=== PATIENT | male | born 1990 | race Caucasian/White ===

== ENCOUNTER 2018-02-05 19:36 | Inpatient (IN) | payer OTHER ==
[~2018-02-05] VITALS: Ht 188 cm; Wt 68.0 kg
--- NOTE | 2018-02-05 20:00 | NUR ---
PRE ADMISSION NOTE Pt is a 27 y/o male seen at intake, A&O x4 and is ambulatory with steady gait. Pt is anxious, restlessness, tremulous with sweats. Pt is withdrawing from benzos and intoxicated from heroin and meth via oral inhalation. Pt reports he last used Xanax "3-4 days ago." Pt denies significant PMH, but reports taking Seroquel 100 mg nightly. Vital signs: 134/86, HR 87, RR 16, T 98.5, 02 97%, Pain 5/10 (body aches). Will continue care of patient upon arrival on unit.
--- NOTE | 2018-02-05 20:30 | NUR ---
Admission The patient is a 27 year old male who presents to [facility] for medically supervised withdrawal from Heroin, Xanax, and Methamphetamines. He was escorted on to the unit by a male ADVERTISING SALES ASSISTANT at 2018. Patient is noted to be ambulatory with steady gait. Skin check rendered and skin is noted with multiple scattered scabs due to picking while intoxicated. The patient appears anxious, flat, and depressed affect. He is noted to be disheveled and unkempt with strong body odor and dirty finger nails. He is alert and oriented x4, speech is clear, and he is noted to be cooperative with admission process. Patient reports his substance use as: 1. Heroin: patient first started using at the age of [age] years old. He is currently using 1GM daily via inhalation. His last use was 02/05/18 1530 using 0.5GM. 2. Methamphetamines: patient first started using at the age of [age] years old. He is currently using 1GM daily via inhalation. His last use was 02/05/18 1530 using 0.2GM 3. Xanax: patient first started using at the age of [age] years old. He is currently using 4mg daily by mouth or via insufflation. His last use was 02/01/18 using 4mg. Patient states "I havn't used because I wasn't able to find any within the last few days. I've been trying to manage by just using heroin and meth." 4. ETOH: patient reports of first drinking at the age of 12. He states "only use when Im with friends that drink" Patient states "I feel like I'm detoxing off the Benzos more than I am off of the Heroin or meth." Patient is reporting increased anxiety, restlessness, increased sweats, tremulous, and body aches. Patient is noted to frequently shifting in position, with flushed face, tremulous. Patient denies any seizure history. He is noted with one episode of withdrawal induced delirium at the age of 16, due to consuming an unknown amount of Benzos and opiates. Patient states "I dont know what exactly happened but my parents told me I was doing some pretty crazy stuff." He reports of receiving treatment at [facility] where he stayed for 3 weeks. Patient denies any withdrawal induced cardiac complications or overdoses. He reports of several blackouts. When asked patient to clarify patient states "Yea I have blackouts often from the Benzos. I dont remember what happens from one specific point to another. I think that I fall asleep but my friends will tell me that I was doing things or I check my phone and dont recognize text messages or conversations." Patient states the most recent blackout was noted 02/01/18 when he consumed Alcohol, methamphetamines, xanax, and heroin. Patient denies any suicidal ideations or homicidal ideations. Patient denies any history of Involuntary Psych Hospitalization. Patient reports of a past medical history of anxiety since the age of 14 where he was prescribed Xanax. Patient also reports diagnosis of insomnia where he is currently receiving Seroquel 100mg QHS for Sleep. Patient denies a PCP or psychiatrist. Patient verbalizes multiple treatment admissions with the last one noted to be in November 2017 where patient was admitted to [facility] detox and treatment. patient reports of only staying for 5 days and then leaving [facility]. Patient reports of struggling with multiple attempts with sobriety but was able to maintain 2 year sober between the years of 2010 and 2012. Patient was noted to relapse during the first of November 2017 immediately after he left [facility] detox and treatment. 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 That then played into the meetings I was attending. I never found new meetings that worked. I found myself just isolative and then I started using." Patient is motivated in maintaining sober lifestyle and states "I miss being sober. I miss my friends and family. I miss the rebeca of working." He reports his triggers for relapse are "its a habit now. I dont want to feel sick so I use. But I know I dont want to continue like this. I know its leading me down the wrong way." When describing barries for staying sober patient states "its all me. Its my thoughts. The cravings take over and I think I can beat it but I cant." Patient states " I this time I have lost so much. I lost my job which I loved. My apartment." Patient reports of having a strong support system consisting of his immediate family and sober friends. Vital Signs rendered and noted as 132/59, 81, 18, 98.0, 100%, 0/10. Breathing is even and non labored. Lung sounds clear. Bowel sounds active in all quadrants. Patient follows a regular diet. No known allergies. Full code. Height is 6'2 and weight is 150lbs. Educated patient about plan of care including detox, group therapy, individual therapy, discharge planning and he was able to verbalize understanding. Admission CIWA noted to be 19 and COWS noted to be 12. Patient is able to verbalize "I dont feel like I need anything for the heroin withdrawal. I just feel like I'm really detoxing from the benzos." All information was relayed to MD with new orders for PRN medications for increased signs and symptoms of withdrawal. Labs ordered and rendered. All needs attended to promptly. Will continue plan of care as ordered.
[2018-02-05] MEDS ORDERED: QUET100T PO (21:16)
[2018-02-05] MEDS ORDERED: LOPERAMIDE HCL 2 MG CAPSULE PO PRN ×2 (21:30)
[2018-02-05] MEDS ORDERED: MAG HYDROX/AL HYDROX/SIMETH 30 ML LIQUID UDC PO PRN (21:30)
[2018-02-05] MEDS ORDERED: LORAZEPAM 1 MG TABLET PO PRN (21:30)
[2018-02-05] MEDS ORDERED: ONDANSETRON 4 MG/2 ML VIAL IM PRN (21:30)
[2018-02-05] MEDS ORDERED: DICYCLOMINE HCL 20 MG TABLET PO PRN (21:30)
[2018-02-05] MEDS ORDERED: ONDANSETRON ODT 4 MG TAB.RAPDIS SL PRN (21:30)
[2018-02-05] MEDS ORDERED: BUPRENORPHINE HCL 2 MG TAB.SUBL SL PRN (21:30)
[2018-02-05] MEDS ORDERED: [UNRECOGNIZED DRUG - REMARK] PO PRN (21:30)
[2018-02-05] MEDS ORDERED: diphenhydrAMINE 50 MG CAPSULE PO PRN (21:30)
[2018-02-05] MEDS ORDERED: MAGNESIUM HYDROXIDE 30 ML LIQUID UDC PO PRN (21:30)
[2018-02-05] MEDS ORDERED: QUETIAPINE FUMARATE 100 MG TABLET PO ONE (22:00)
--- NOTE | 2018-02-05 22:00 | NUR ---
PRN Medication Administration patient is noted with increased anxiety, restlessness, agitation, tremulous, flushed face, increased sweats and chills. CIWA noted to be 19 and COWS 12. PRN Ativan 2 mg administered. Patient also received one time dose of Seroquel 100mg for sleep. All needs attended to promptly. Will continue to monitor.
[2018-02-05 22:12] LABS: *AMPHETAMINE, URINE POSITIVE (NEGATIVE); *BARBITURATE, URINE NEGATIVE (NEGATIVE); *CANNABINOID, URINE NEGATIVE (NEGATIVE); *COCCAINE, URINE NEGATIVE (NEGATIVE); *OPIATE, URINE POSITIVE (NEGATIVE); *PHENCYCLIDINE SCREEN,URINE NEGATIVE (NEGATIVE)
--- NOTE | 2018-02-05 23:00 | NUR ---
PRN Medication Reassessment Patient is noted in bed with eyes closed. Breathing even and non labored. No signs of restlessness or discomfort noted. PRN Ativan 2mg and Seroquel 100mg noted to be effective. Will continue to monitor.
[2018-02-05 23:18] LABS: BASOPHILS # (AUTO) 0.1 K/uL (0.0-8.0); BASOPHILS % (AUTO) 1.2 % (0.0-2.0); EOSINOPHILS # (AUTO) 0.4 K/uL (0.0-0.7); EOSINOPHILS % (AUTO) 3.7 % (0.0-7.0); HEMATOCRIT 40.8 % (36.7-47.1); LYMPHOCYTES # (AUTO) 2.9 K/uL (20.0-40.0); LYMPHOCYTES % (AUTO) 29.5 % (20.5-51.5); MEAN CORPUSCULAR HEMOGLOBIN 30.1 uug (23.8-33.4); MEAN CORPUSCULAR HGB CONC 34 g/dL (32.5-36.3); MEAN CORPUSCULAR VOLUME 87.7 fL (73.0-96.2); MONOCYTES % (AUTO) 9.9 % (0.0-11.0); NEUTROPHILS # (AUTO) 5.5 K/uL (1.8-8.9); NEUTROPHILS % (AUTO) 55.7 % (38.5-71.5); PLATELET COUNT (AUTO) 294 K/uL (152-348); RED BLOOD CELL COUNT(AUTO) 4.65 MIL/uL (4.06-5.63); WHITE BLOOD COUNT (AUTO) 9.9 K/uL (3.6-10.2)
[2018-02-05 23:28] LABS: ETHANOL < 3 MG/DL (0-0)
[2018-02-05 23:29] LABS: ALANINE AMINOTRANSFERASE 23 U/L (16-63); ALKALINE PHOSPHATASE 90 U/L (50-136); ASPARTATE AMINOTRANSFERASE 25 U/L (15-37); BILIRUBIN,TOTAL 0.6 mg/dL (0.2-1.0); CARBON DIOXIDE 28 mmol/L (21-32); CHLORIDE 102 mmol/L (98-107); GLUCOSE 91 mg/dL (74-106); MAGNESIUM 2.2 mg/dL (1.8-2.4); POTASSIUM 3.8 mmol/L (3.5-5.1); TOTAL PROTEIN, SERUM 7.3 g/dL (6.4-8.2); UREA NITROGEN, BLOOD 14 mg/dL (7-18)
[2018-02-06 00:30] VITALS: BP 116/65
[2018-02-06 04:30] VITALS: BP 111/72
--- NOTE | 2018-02-06 07:05 | NUR ---
End of Shift Patient is noted in bed with eyes closed. Breathing even and non labored. Patient is currently receiving PRN medications for increased signs and symptoms of withdrawal. Patient received PRN Ativan 2mg for increased CIWA of 19. he also received one time dose of Seroquel 100mg for sleep. He was noted to sleep a total of 8 hours. Last noted COWS 12 and CIWA 19. All needs attended to promptly. Will endorse to continue plan of care as ordered.
--- NOTE | 2018-02-06 07:51 | NUR ---
Start of shift note; Received report from night nurse. Patient is a 27 year old male admitted on 02/05/18 for Opiate/Benzodiazepine withdrawal. Patient's last CIWA score is 19 and COWS of 12 per endorsement. Patient received PRN Ativan medication last night, noted to be effective. Medication order to be clarified with MD. Patient presented with anxiety, complaining of intermittent sweats, vivid dreams, generalized discomfort, stomach cramps, restless legs, tremors, avoidant to eye contact. Educated patient regarding the importance of compliance to treatment and medication regime. Encouraged patient to participate in group activities and therapy. All safety measures secured. Will continue to monitor patient.
[2018-02-06 08:00] VITALS: BP 107/63
--- NOTE | 2018-02-06 08:00 | NUR ---
COWS and CIWA Assessment; Patient current COWS is 11 and CIWA of 16 manifested by anxiety, restless legs, tremors, stomach cramps, nasal stuffiness, difficulty concentrating, insomnia, muscle aches, yawning and agitation. Patient to start 5 day Valium taper and currently on PRN Subutex to help reduce withdrawal symptoms. Will continue to monitor patient for effectiveness of medication.
[2018-02-06] MEDS ORDERED: DIAZEPAM 5 MG TABLET PO PRN (08:30)
[2018-02-06] MEDS ORDERED: DIAZEPAM 10 MG TABLET PO PRN ×2 (08:30)
[2018-02-06] MEDS ORDERED: 5 DAY TAPER VALIUM-SERENITY PROTOCOL PO PRN (08:30)
[2018-02-06] MEDS ORDERED: TUBERCULIN,PURIF.PROT.DERIV. 5 TU/0.1 ML TEST ID ONE (09:00)
[2018-02-06] MEDS: DIAZEPAM 10 MG TABLET PO SCH ×4 (09:39→21:33)
[2018-02-06 12:00] VITALS: BP 127/82
[2018-02-06] MEDS ORDERED: 5 DAY TAPER BUPRENORPHINE -SERENITY PROTOCOL SL PRN (12:00)
--- NOTE | 2018-02-06 12:00 | NUR ---
COWS and CIWA Assessment; Patient continues to show s/s of withdrawals COWS is 11 and CIWA of 16 manifested by anxiety, restless legs, tremors, stomach cramps, nasal stuffiness, difficulty concentrating, insomnia, muscle aches, yawning and agitation. Patient started 5 day Valium taper and to start 4 day Subutex taper tomorrow to help reduce withdrawal symptoms. Will continue to monitor patient for effectiveness of medication.
[2018-02-06 16:00] VITALS: BP 127/82
--- NOTE | 2018-02-06 16:00 | NUR ---
COWS and CIWA Assessment; Patient continues to show s/s of withdrawals COWS is 10 and CIWA of 15 manifested by anxiety, restless legs, tremors, stomach cramps, nasal stuffiness, difficulty concentrating, insomnia, muscle aches, yawning and agitation. Will continue to monitor patient for effectiveness of medication.
--- NOTE | 2018-02-06 18:21 | NUR ---
End of shift note; Patient is AOX4 presented with anxiety, restless legs, tremors, stomach cramps, nasal stuffiness, difficulty concentrating, insomnia, muscle aches, yawning and agitation. Patient's last COWS score is 10 and last CIWA score is 15. Patient was started on a 5 day Valium taper today, to start 4 day Subutex taper tomorrow morning. Medications were effective in reducing withdrawal symptoms. Encouraged patient to consume adequate fluid and nutritional intake. All safety measures secured. Met all needs.
--- NOTE | 2018-02-06 19:30 | NUR ---
Start of Shift Patient Received. Patient continues on 5 day Valium taper and will start a 4 day Subutex taper. No PRN medications received. He was reported to be isolative to room with intermittent smoke breaks. Last noted COWS 10 and CIWA 15. Upon rounds, patient is noted in his room with lights off watching TV. Patient states Sleeping is kind of how I get through the first couple of days of withdrawal. Maybe its is the meth. 2100 medications reviewed with patient. No signs of withdrawal verbalized while at bedside. All needs attended to promptly. Will continue plan of care as ordered.
[2018-02-06 20:54] VITALS: BP 123/81
[2018-02-06] MEDS ORDERED: QUETIAPINE FUMARATE 100 MG TABLET PO ONE (21:30)
[2018-02-06] MEDS ORDERED: BUPRENORPHINE HCL 2 MG TAB.SUBL SL PRN (21:45)
--- NOTE | 2018-02-06 21:55 | NUR ---
PRN Medication Administration Patient is reporting increased chills and sweats, noted to be frequently shifting in bed, piloerection skin, and tremulous, verbalizing increased joint and bone aches, running nose, and increased anxiety. COWS noted to be 19. Relayed to CN and MD with new order to renew PRN Subutex 4mg. Medication administered as ordered. Will continue to monitor.
--- NOTE | 2018-02-06 23:00 | NUR ---
PRN Medication Reassessment patient is noted in bed with his eyes closed. Breathing even and non labored. No signs of restlessness or facial grimacing noted. PRN Subutex noted to be effective. Will continue to monitor.
[2018-02-07 00:15] VITALS: BP 136/86
[2018-02-07 04:20] VITALS: BP 127/85
--- NOTE | 2018-02-07 06:55 | NUR ---
End of Shift Patient is noted in bed with eyes closed. Breathing even and non labored. Patient continues on 5 day Valium taper and will start a 4 day Subutex taper today 0900. Patient was noted with increased signs and symptoms of withdrawal, COWS 19 and CIWA 15. He received PRN Subutex 4mg. Medication was noted to be effective. Last noted COWS 12 and CIWA 11. Patient noted to sleep a total of 10 hours. All needs attended to promptly. Will endorse to continue plan of care as ordered.
--- NOTE | 2018-02-07 07:40 | NUR ---
Start of shift note; Received report from night nurse. Patient is a 27 year old male admitted on 02/05/18 for Opiate/Benzodiazepine withdrawal. Patient's last CIWA score is 11 and COWS of 12 per endorsement. Patient received PRN Subutex last night, noted to be effective. Patient presented with anxiety, complaining of intermittent sweats, vivid dreams, generalized discomfort, stomach cramps, restless legs, tremors, avoidant to eye contact. Patient slept for 9 hours. Educated patient regarding the importance of compliance to treatment and medication regime. Encouraged patient to participate in group activities and therapy. All safety measures secured. Will continue to monitor patient.
[2018-02-07 08:00] VITALS: BP 126/78
--- NOTE | 2018-02-07 08:00 | NUR ---
COWS and CIWA Assessment; Patient current COWS is 16 and CIWA of 13 manifested by anxiety, restless legs, tremors, stomach cramps, nasal stuffiness, difficulty concentrating, insomnia, muscle aches, yawning and agitation. Patient to was placed on 5 day Valium taper and 4 day Subutex taper to help reduce withdrawal symptoms. Will continue to monitor patient for effectiveness of medication.
[2018-02-07] MEDS: BUPRENORPHINE HCL 2 MG TAB.SUBL SL SCH ×3 (08:53→21:20)
[2018-02-07] MEDS: DIAZEPAM 10 MG TABLET PO SCH ×3 (08:53→21:20)
[2018-02-07] MEDS ORDERED: 4 DAY TAPER BUPRENORPHINE -SERENITY PROTOCOL SL PRN (09:00)
[2018-02-07 09:06] LABS: HEPATITIS B SURFACE AG Negative (Negative)
[2018-02-07 12:00] VITALS: BP 116/72
--- NOTE | 2018-02-07 12:00 | NUR ---
COWS and CIWA Assessment; Patient continues to show s/s of withdrawal with current COWS is 16 and CIWA of 13 manifested by anxiety, restless legs, tremors, stomach cramps, nasal stuffiness, difficulty concentrating, insomnia, muscle aches, yawning and agitation. Patient to was placed on 5 day Valium taper and 4 day Subutex taper to help reduce withdrawal symptoms. Will continue to monitor patient for effectiveness of medication.
[2018-02-07 16:00] VITALS: BP 126/78
--- NOTE | 2018-02-07 16:00 | NUR ---
COWS and CIWA Assessment; Patient continues to show s/s of withdrawal with current COWS is 14 and CIWA of 11 manifested by anxiety, restless legs, tremors, stomach cramps, nasal stuffiness, difficulty concentrating, insomnia, muscle aches, yawning and agitation. Patient to was placed on 5 day Valium taper and 4 day Subutex taper to help reduce withdrawal symptoms. Will continue to monitor patient for effectiveness of medication.
--- NOTE | 2018-02-07 18:35 | NUR ---
End of shift note; Patient is AOX4 presented with anxiety, restless legs, tremors, stomach cramps, nasal stuffiness, difficulty concentrating, insomnia, muscle aches, yawning and agitation. Patient's last COWS score is 14 and last CIWA score is 11. Patient is on a 5 day Valium taper today and 4 day Subutex taper. Medications were effective in reducing withdrawal symptoms. Encouraged patient to consume adequate fluid and nutritional intake. All safety measures secured. Met all needs.
--- NOTE | 2018-02-07 19:20 | NUR ---
START OF SHIFT Patient is a 27-year-old male admitted on 02/05/18 for benzodiazepine and opiate withdrawal. Patient is currently on a 5-day Valium taper and a 4-day Subutex taper, tolerating well. Both tapers will be completed on 02/10/18. Patients last COWS was 14, last CIWA was 11, per endorsement. Patient did not receive any PRN medications during the day. Upon assessment, patient is sleeping in his bed with eyes closed. Patient responds upon hearing his name called. Patient complains of a headache, body aches, chills, anxiety, and difficulty sleeping. Patient appears disheveled, unshaven, and has sunken eyes. Patient is on fall and seizure precautions with no reports of seizure history. Meds are scheduled for 2100. Will continue to monitor.
[2018-02-07 20:00] VITALS: BP 122/66
--- NOTE | 2018-02-07 20:00 | NUR ---
COWS 16, CIWA 14 Patient complains of anxiety, chills, sweats, achy bones and joints, piloerection, restlessness, and mild headache. Current COWS is 16, CIWA is 14. SN to administer meds as ordered. Will continue to monitor.
[2018-02-07] MEDS: IBUPROFEN 600 MG TABLET PO PRN (21:20)
[2018-02-07] MEDS: METHOCARBAMOL 750 MG TABLET PO PRN (21:20)
[2018-02-07] MEDS: QUETIAPINE FUMARATE 100 MG TABLET PO PRN (21:24)
--- NOTE | 2018-02-07 21:24 | NUR ---
PRN ROBAXIN, MOTRIN, & SEROQUEL Patient reports body aches /10 and headache /10. Patient reports difficulty sleeping. PRN Robaxin and Motrin given PO at 2119. PRN Seroquel given PO at 2123. Safety measures in place, side rails up x2, bed locked in low position, call light within reach. Will monitor for effectiveness.
--- NOTE | 2018-02-07 22:24 | NUR ---
PRN ROBAXIN, MOTRIN, & SEROQUEL REASSESSMENT Patient reports that body aches have improved, now 4/10 on pain scale. Patient reports that headache is 2/10 on pain scale. PRN Motrin and Robaxin noted to be effective. Patient states that he is ready to sleep now that he had "one last cigarrette." Safety measures in place, side rails up x2, bed locked in low position, call light within reach. Will continue to monitor.
[2018-02-08] VITALS: BP 111/62
--- NOTE | 2018-02-08 | NUR ---
COWS & CIWA DEFERRED COWS and CIWA deferred at this time due to patient sleeping; to be assessed and scored while patient is awake. Respirations even and unlabored. Safety measures in place, side rails up x2, bed locked in low position, call light within reach. Will continue to monitor.
[2018-02-08 04:00] VITALS: BP 124/66
--- NOTE | 2018-02-08 04:00 | NUR ---
CIWA AND COWS DEFERRED Patient noted to be in bed resting with eyes closed breathing even and unlabored. Per protocol CIWA and COWS are to be assessed while awake. Safety measures in place, side rails up x2, low bed position, call light within reach. Will continue to monitor.
--- NOTE | 2018-02-08 07:20 | NUR ---
END OF SHIFT Patient is a 27-year-old male admitted on 02/05/18 for benzodiazepine and opiate withdrawal. Patient is currently on a 5-day Valium taper and a 4-day Subutex taper, tolerating well. Both tapers will be completed on 02/10/18. Patients last COWS was 16, last CIWA was 14. Patient received PRN Robaxin, Motrin, and Seroquel; all PRNs were noted to be effective. Patient slept for 7 hours, total intake of 1,091mL, void x2, stool x0. Patient is on fall and seizure precautions with no reports of seizure history. Safety measures in place, side rails up x2, bed locked in low position, call light within reach. Will endorse to day shift.
--- NOTE | 2018-02-08 07:30 | NUR ---
START OF SHIFT NOTE Received report from night nurse 27 year old male admitted for Benzo, Heroin, Meth withdrawal and continues on 5 days Valium, 4 days Subutex taper tolerating well. Per endorsement patient received PRN, Robaxin, Motrin, Seroquel, effective per night nurse, slept for 7 hours and last CIWA-14, COWS-16. Received patient alert awake oriented x4, anxious, agitated, sweats, chills, bilateral hand tremors. Breathing normal no SOB noted. Skin intact warm and dry to touch. All safety measures in place call light within reach. Will cont to monitor.
[2018-02-08 08:00] VITALS: BP 120/68
[2018-02-08] MEDS ORDERED: BUPRENORPHINE HCL 2 MG TAB.SUBL SL SCH (09:00)
--- NOTE | 2018-02-08 09:23 | NUR ---
CIWA/COWS ASSESSMENT Patient presented with blunt facial expression, anxiety, agitation, restless, diaphoresis, flushed face, frequent shifting, mild body aches, stuffy nose, yawning, piloerection of skin, light headed, sweats, stuffy nose, bilateral hand tremors, CIWA-16, COWS-17 noted. Patient received his schedule medication. Will cont to monitor.
[2018-02-08] MEDS: DIAZEPAM 5 MG TABLET PO SCH ×4 (09:27→20:39)
[2018-02-08] MEDS: MIRALAX 17 GM POWD.PACK PO PRN (09:30)
--- NOTE | 2018-02-08 09:34 | NUR ---
PRN Miralax Pt reports no BM in 3 days. Encouraged fluids. PRN Miralax administered.
--- NOTE | 2018-02-08 10:34 | NUR ---
MIRALAX REASSESSMENT Per patient Miralax was ineffective, encourage PO fluids as tolerated. Will cont to monitor.
--- NOTE | 2018-02-08 10:36 | NUR ---
Therapist prompted client to attend group therapy.
[2018-02-08 12:00] VITALS: BP 136/76
--- NOTE | 2018-02-08 12:08 | NUR ---
CIWA/COWS ASSESSMENT Patient continues to presented s/s of withdrawal such as anxiety, agitation, fatigue, diaphoresis, flushed face, frequent shifting, mild body aches, stuffy nose, piloerection of skin, per patient light headed subsided, sweats, stuffy nose, bilateral hand tremors, CIWA-14, COWS-15 noted. Patient received his schedule Valium and due for his Subutex taper. Will cont to monitor.
[2018-02-08] MEDS: BUPRENORPHINE HCL 2 MG TAB.SUBL SL SCH ×2 (14:34→20:39)
[2018-02-08] MEDS: PANTOPRAZOLE SODIUM 40 MG TABLET.DR PO SCH (14:40)
[2018-02-08 16:00] VITALS: BP 133/72
--- NOTE | 2018-02-08 16:19 | NUR ---
CIWA/COWS ASSESSMENT Patient continues to exhibited s/s of withdrawal such as anxiety, agitation, fatigue, diaphoresis, flushed face, frequent shifting, mild body aches, piloerection of skin, sweats, stuffy nose, bilateral hand tremors, CIWA-12, COWS-12 noted. Patient received his schedule Valium and due for his Subutex taper. Will cont to monitor.
--- NOTE | 2018-02-08 18:56 | NUR ---
END OF SHIFT NOTE Gave report to night nurse, 27 year old male patient admitted for Heroin,Meth, Benzo withdrawal and continues with Valium and Subutex taper tolerated well. Patient is alert awake oriented x4 presented with labile facial expression, anhedonia, anxiety, agitation, restless, sweats, emotional volatility, general body discomfort, bilateral hand tremors. Patient was given schedule medications, and PRN Miralax. Patient was seen by MD with new order of Protonix 40mg PO for GERD medications were given as ordered patient tolerated well. Last CIWA-12, COWS-12. Medications were effective in reducing withdrawal symptoms. Encourage patient to attend groups and activities to learn new coping skills. All safety measures in place, call light within reach. Patient endorse to night nurse in stable condition.
[2018-02-08 20:00] VITALS: BP 135/70
--- NOTE | 2018-02-08 20:00 | NUR ---
Start of shift Patient is 27 years old male admitted on 02/05/2018 for ETOH, Heroin, and Xanax. Patient also admits of using methamphetamine. Patient is on a 5 day Valium and 4 day Subutex taper. Patients last CIWA 12 and Cows 12. Per endorsement patient received PRN Miralax for constipation. Upon rounds patient was laying in bed watching tv. Patient admits having a bowel movement, Miralax noted to be effective. Patient seems anxious, withdrawn, and depressed. Reviewed 2100 medications with patient and verbalized understanding of medication regimen and asked for Seroquel for sleep. Safety measures in place, bed lock in low position, side rails up x2, and call light within reach. Will continue to monitor.
[2018-02-08] MEDS: CLONIDINE HCL 0.1 MG TABLET PO PRN (20:40)
[2018-02-08] MEDS: QUETIAPINE FUMARATE 100 MG TABLET PO PRN (20:44)
--- NOTE | 2018-02-08 20:45 | NUR ---
PRN Medication Administration Patient is noted awake and watching TV. Breathing even and non labored. Patient is noted to verbalize increased anxiety and increased sweats and chills. Patient states "Alesha been sweaty all day today. May I please get my sheets changed?" complete linen change rendered. Patient is also noted verbalizing inability of falling asleep. PRN Seroquel and PRN Clonidine administered with routine medications. Will continue to monitor.
--- NOTE | 2018-02-08 21:45 | NUR ---
PRN Medication Reassessment Patient is noted in bed with his eyes closed. Breathing even and non labored. No signs of restlessness or discomfort noted. PRN Clonidine and Seroquel noted to be effective. Will continue to monitor.
[2018-02-09] VITALS: BP 116/73
--- NOTE | 2018-02-09 | NUR ---
CIWA and COWS Deferred Patient noted to be in bed resting with eyes closed, breathing even and unlabored. Per protocol CIWA and COWS is to be assessed while awake. Safety measures in place, bed lock in low position, side rails up x2, and call light within reach. Will continue to monitor.
[2018-02-09 04:30] VITALS: BP 126/66
[2018-02-09] MEDS: PANTOPRAZOLE SODIUM 40 MG TABLET.DR PO SCH (07:23)
--- NOTE | 2018-02-09 07:29 | NUR ---
End of shift Patient is 27 years old male admitted on 02/05/2018 for ETOH, Heroin, and Xanax. Patient also admits of using methamphetamine. Patient is on a 5 day Valium and 4 day Subutex taper. Patients last CIWA 14 and Cows 13. Patient received PRN clonidine and Seroquel. Patient slept for 8 hours, total intake was 1,000 ml. Patient voided x2 and had 1 bowel movement. Safety measures in place, bed lock in low position, side rails up x2, and call light within reach. Will endorse to day shift.
--- NOTE | 2018-02-09 07:40 | NUR ---
START OF SHIFT NOTE Received report from night nurse 27 year old male admitted for Benzo, Heroin, Meth withdrawal and continues on 5 days Valium, 4 days Subutex taper tolerating well. Per endorsement patient received PRN, Clonidine, Seroquel, effective per night nurse, slept for 8 hours and last CIWA-14, COWS-13. Received patient alert awake oriented x4, anxious, agitated, sweats, chills, bilateral hand tremors, empty bottles on the floor, linens on the floor. Patient stated Miralax was effective and had a BM this morning. All safety measures in place call light within reach. Will cont to monitor.
[2018-02-09 08:00] VITALS: BP 121/67
[2018-02-09] MEDS: DIAZEPAM 5 MG TABLET PO SCH ×3 (08:37→21:21)
[2018-02-09] MEDS: BUPRENORPHINE HCL 2 MG TAB.SUBL SL SCH ×3 (08:37→21:21)
--- NOTE | 2018-02-09 08:37 | NUR ---
CIWA/COWS ASSESSMENT Patient presented with anxiety, agitation, restless, Yawning, flushed face, difficulty sitting still, mild body aches, stuffy nose, bilateral hand tremors, sweats, CIWA-12, COWS-11. Patient is given his scheduled Valium and Subutex. MD notified. Will cont to monitor.
[2018-02-09 12:00] VITALS: BP 142/83
--- NOTE | 2018-02-09 12:00 | NUR ---
CIWA/COWS ASSESSMENT Patient continues to exhibits s/s of withdrawal such as increased pulse, chills, anxiety, agitation, restless, difficulty sitting still, mild body aches, stuffy nose, bilateral hand tremors, sweats, CIWA-11, COWS-10. Patient is due for schedule medications. Encourage patient to use distraction such as listing to the music, reading books, going to the activities, patient verbalized understanding. Will cont to monitor.
[2018-02-09 16:00] VITALS: BP 127/68
--- NOTE | 2018-02-09 16:00 | NUR ---
CIWA/COWS ASSESSMENT Patient continues to exhibits s/s of withdrawal such as increased pulse, chills. Per patient feeling less anxious, agitated, restless,CIWA and COWS score noted-9/9. Will cont to monitor.
--- NOTE | 2018-02-09 19:05 | NUR ---
END OF SHIFT NOTE Gave report to night nurse, 27 year old male admitted for Heroin, Meth Benzo, withdrawal. Patient continues with Valium and Subutex taper tolerating well. Patient presented with anxiety, agitation, restless, light headed, sweats, bilateral hand tremors, chills, fatigue. Patient was given scheduled medications and did not requested or required any PRN'S. Patient noted attended groups and activities. Encourage PO fluids as tolerated. Patient was seen by MD with new order for [employer] [facility]. All safety measures in place, call light within reach. Patient endorse to night nurse in stable condition.
--- NOTE | 2018-02-09 19:30 | NUR ---
START OF SHIFT Pt is a 27 y/o male admitted on 02/05/18 for medically supervised withdrawal of opiates, and benzos. Pt is on a 5 day valium taper and 4 day Subutex taper, tolerating well. Last CIWA 9 COWS 9 and no PRNs given during day shift. Upon assessment Pt found in bed watching TV. Pt presents with anxiety, agitation, lower back pain, flushed skin, restless legs, withdrawn, isolative, and difficulty falling and staying asleep. Medications due. Safety measures in place. Call light within reach. Will continue to monitor.
[2018-02-09 20:00] VITALS: BP 135/81
--- NOTE | 2018-02-09 20:00 | NUR ---
CALE 13 COWS 12 Pt presents with anxiety, agitation, restlessness, fidgety, moist/flushed skin, and complains of lower back pain 5/10. Safety measures in place. Call light within reach. Will continue to monitor.
[2018-02-09] MEDS: PRAZOSIN HCL 1 MG CAPSULE PO SCH (21:20)
[2018-02-09] MEDS: METHOCARBAMOL 750 MG TABLET PO PRN (21:20)
--- NOTE | 2018-02-09 21:20 | NUR ---
PRN ROBAXIN AND SEROQUEL ADMINISTRATION Pt requested a muscle relaxant for generalized body pain 5/10 and a sleeping aid. PRN Robaxin and Seroquel were administered per order. Safety measures in place. Call light within reach. Will continue to monitor.
[2018-02-09] MEDS: QUETIAPINE FUMARATE 100 MG TABLET PO PRN (21:31)
--- NOTE | 2018-02-09 22:20 | NUR ---
PRN ROBAXIN AND SEROQUEL REASSESSMENT Pt found in bed with eyes closed. Respirations even and unlabored. Medications noted as effective. Safety measures in place. Call light within reach. Will continue to monitor.
[2018-02-10] VITALS: BP 138/72
--- NOTE | 2018-02-10 | NUR ---
DESMONDWA 7 COWS 8 Pt found in bed watching TV. Pt presents with mild anxiety/agitation, restlessness, and moist/flushed skin. Pt stated his lower back pain is more tolerable no, rating his pain 2/10. Safety measures in place. Call light within reach. Will continue to monitor.
[2018-02-10] MEDS: HYDROXYZINE PAMOATE 25 MG CAPSULE PO PRN (01:48)
--- NOTE | 2018-02-10 01:48 | NUR ---
PRN CLONIDINE AND VISTARIL ADMINISTRATION Pt presents with anxiety, agitation, restlessness, flushed/moist skin, and difficulty falling and staying asleep. Pt's v/s 140/86 and a heart rate of 125. PRN Clonidine and Vistaril were administered. Safety measures in place. Call light within reach. Will continue to monitor.
[2018-02-10] MEDS: CLONIDINE HCL 0.1 MG TABLET PO PRN (01:50)
--- NOTE | 2018-02-10 02:48 | NUR ---
PRN CLONIDINE AND VISTARIL REASSESSMENT Pt noted in bed with TV on. Pt's eyes are closed, respirations are even and unlabored. Medications noted as effective. Safety measures in place. Call light within reach. Will continue to monitor.
--- NOTE | 2018-02-10 04:00 | NUR ---
COWS/CIWA DEFERRED AND VITAL SIGNS REFUSED Patient is noted in bed with eyes closed. Breathing even and non labored. COWS/CIWA and vital signs not able to be completed per order. Safety measures in place. Call light within reach. Will continue to monitor.
[2018-02-10 04:45] VITALS: BP 119/74
--- NOTE | 2018-02-10 04:45 | NUR ---
COWS 9 CIWA 10 Pt awoke from sleep and complains of increased anxiety and agitation. Pt is fidgety and restless.PRN medication offered but Pt refused at this time. Safety measures in place. Call light within reach. Will continue to monitor.
[2018-02-10] MEDS: PANTOPRAZOLE SODIUM 40 MG TABLET.DR PO SCH (06:49)
--- NOTE | 2018-02-10 07:06 | NUR ---
END OF SHIFT Pt is a 27 y/o male admitted on 02/05/18 for medically supervised withdrawal of opiates and benzos. Pt to continue a 5 day Valium taper and 4 day Subutex taper, tolerating well. Pt presented with anxiety, agitation, lower back pain, flushed skin, restless legs, withdrawn, isolative, and difficulty falling and staying asleep. PRN Clonidine, Robaxin, Seroquel, and Vistaril administered, effective in S/S of withdrawal as verbalized by Pt. Last CIWA 9 COWS 10. Pt slept 6 hours. Intake 500 ml, void x 1, stool x 0. Safety measures in place. Call light within reach. P's needs have been met. Endorsed to day shift nurse.
[2018-02-10 08:13] VITALS: BP 112/68
--- NOTE | 2018-02-10 08:17 | NUR ---
START OF SHIFT: Received Pt A/O X 4. He presents with blunted affect and depressed mood. He denies S/I and H/I. He reports having a terrible night of restlessness and states he barely slept. He reports anxiety,chills, sweats,body aches and irritability. He also reports stomach cramps and states he is backed up but moved his bowels yesterday.COWS 12 CIWA 10 PRN Ibuprofen and PRN Miralax given as ordered. Will monitor effectiveness of PRN medication. Will continue to monitor and manage s/s of w/d.
[2018-02-10] MEDS ORDERED: BUPRENORPHINE HCL 2 MG TAB.SUBL SL SCH (09:00)
[2018-02-10] MEDS: METHOCARBAMOL 750 MG TABLET PO PRN (09:14)
[2018-02-10] MEDS: IBUPROFEN 600 MG TABLET PO PRN (09:14)
[2018-02-10] MEDS: DIAZEPAM 5 MG TABLET PO SCH ×2 (09:14→21:27)
[2018-02-10] MEDS: MIRALAX 17 GM POWD.PACK PO PRN (09:15)
--- NOTE | 2018-02-10 09:20 | NUR ---
PRN Ibuprofen effective as Pt states his body aches have lessened. Pt states the Miralax helped his stomach feel better. Will continue to monitor.
[2018-02-10 12:00] VITALS: BP 98/68
--- NOTE | 2018-02-10 12:10 | NUR ---
Noon COWS 10 CIWA 9. He reports malaise,restlessness,body aches and irritability.
[2018-02-10 16:00] VITALS: BP 126/81
--- NOTE | 2018-02-10 18:30 | NUR ---
START OF SHIFT NOTE: Presented patient is 25 years old male, continues ordered 5 day Valium and 5 day Subutex taper since 02/06/2018 ordered for Benzodiazepines, Alcohol, and Methamphetamine withdrawal. The patient tolerated well. Withdrawal symptoms will be closely monitoring. Patient remains compliant with treatment, medications, and diet regimen. Patient is alert and oriented x4, cooperative, with stable gait, clear soft speech. Patient reports NKA, is on Full Code, Regular diet, Fall and Seizures precautions. Patient denies history of seizures. The most recent COWS=10, CIWA= 9 at 1600. During day shift patient was experienced following withdrawal symptoms such as anxiety, agitation, irritability, nervousness, enlarged for room light pupils, stomach cramps, barely sweating, general body aches, not visible bilateral tremors, restlessness, fatigue, and yawning. PRN Ibuprofen 600 mg PO administered for pain at 0914, PRN Robaxin 750 mg PO administered for myalgia at 0914, and PRN Miralax 17 GM, 1 Powd. Pack at 1915, and were effective, per day shift nurse report. Patient was encouraged to fluids intake as tolerated, and to attend groups activities. Safe and calm environment provided. All needs met. Safety measures in place: Call light within reach, bed locked in lowest position, padded bed rails up bilaterally. Endorsed by day shift nurse. Report received. Will be monitoring closely.
--- NOTE | 2018-02-10 18:30 | NUR ---
END OF SHIFT: Pt continues on Valium/Subutex taper to manage s/s of w/d which include body aches,anxiety, sweats ,chills and restlessness. Last COWS 10 CIWA 9. He slept on and off most of shift with little interaction with peers. He was given PRN Motrin and PRN Robaxin this am which was effective in reducing symptoms. Pt was compliant with increased fluid intake. Will continue to monitor and offer support.
[2018-02-10 20:00] VITALS: BP 117/84
--- NOTE | 2018-02-10 20:00 | NUR ---
COWS/CIWA ASSESSMENT COWS=12, CIWA=10 at 1999. The patient presented with following withdrawal symptoms such as anxiety, agitation, irritability, nervousness, enlarged for room light pupils, nasal congestion, barely sweating, general body aches, not visible bilateral tremors, restlessness, fatigue, and yawning. Scheduled medications will be administrated as ordered. Encouraged to intake fluids as tolerated. Safe and calm environment provided. All needs met. Safety measures: Call light within reach, bed locked in lowest position, padded bed rails up x2. Will continue to monitor closely.
[2018-02-10] MEDS: PRAZOSIN HCL 1 MG CAPSULE PO SCH (21:29)
[2018-02-10] MEDS: QUETIAPINE FUMARATE 100 MG TABLET PO PRN (21:33)
--- NOTE | 2018-02-10 21:33 | NUR ---
PRN SEROQUEL 100 MG 1 TABLET PO ADMINISTRATION Patient c/o insomnia and asked aid. PRN Seroquel 100 mg 1 tablet PO administered at 2133 as ordered. Patient tolerated well. Safe and calm environment provided. All needs met. Safety measures in place: Call light within reach, bed locked in lowest position, padded bed rails up bilaterally. Will continue monitoring closely.
--- NOTE | 2018-02-10 22:33 | NUR ---
PRN RE-ASSESSMENT Patient is sleeping on his side. Respirations are even and unlabored. RR: 15. PRN Seroquel 100 mg PO administered for insomnia at 2133 was effective. Safe and calm environment provided. All needs met. Safety measures in place: Call light within reach, bed locked in lowest position, padded bed rails up bilaterally. Will continue monitoring closely.
[2018-02-11] VITALS (7 sets, daily range): BP systolic 113–129; BP diastolic 59–88
--- NOTE | 2018-02-11 | NUR ---
COWS/CIWA ASSESSMENT COWS=14, CIWA=14 at 0000. The patient experienced increased anxiety, agitation, irritability, nervousness, enlarged for room light pupils, nasal congestion, sweating, clammy skin general body aches, myalgia, bilateral tremors, restlessness, fatigue, and yawning. PRN medications will be administrated as ordered. Encouraged to intake fluids as tolerated. Safe and calm environment provided. All needs met. Safety measures: Call light within reach, bed locked in lowest position, padded bed rails up x2. Will continue to monitor closely.
[2018-02-11] MEDS: HYDROXYZINE PAMOATE 25 MG CAPSULE PO PRN ×3 (00:12→20:58)
[2018-02-11] MEDS: METHOCARBAMOL 750 MG TABLET PO PRN ×3 (00:13→20:57)
--- NOTE | 2018-02-11 00:13 | NUR ---
PRN VISTARIL 50 MG PO, PRN ROBAXIN 750 MG PO ADMINISTRATION PRN Vistaril 50 mg PO administered for anxiety at 0012, and PRN Robaxin 750 mg PO administered for myalgia at 0013, as ordered with full glass of water. Patient tolerated well. Safe and calm environment provided. All needs met. Safety measures in place: Call light within reach, bed locked in lowest position, padded bed rails up bilaterally. Will continue to monitor closely.
--- NOTE | 2018-02-11 01:13 | NUR ---
PRN RE-ASSESSMENT PRN Vistaril 50 mg PO administered for anxiety at 0012, and PRN Robaxin 750 mg PO administered for myalgia at 0013 were effective. Patient is sleeping. Respirations are even and unlabored. RR: 14. Safe and calm environment provided. All needs met. Safety measures in place: Call light within reach, bed locked in lowest position, padded bed rails up bilaterally. Will continue monitoring closely.
--- NOTE | 2018-02-11 04:00 | NUR ---
COWS/CIWA ASSESSMENT COWS=16, CIWA=15 at 0400. The patient noted anxious , agitated, with irritability, nervousness, enlarged for room light pupils, nasal congestion, sweating, clammy skin, c/o severe general body aches "8/10' , bilateral tremors, restlessness, fatigue, and yawning. PRN medications will be administrated as ordered. Encouraged to intake fluids as tolerated. Safe and calm environment provided. All needs met. Safety measures: Call light within reach, bed locked in lowest position, padded bed rails up x2. Will continue to monitor closely.
[2018-02-11] MEDS: IBUPROFEN 600 MG TABLET PO PRN ×3 (04:38→20:58)
[2018-02-11] MEDS: CLONIDINE HCL 0.1 MG TABLET PO PRN ×3 (04:38→20:59)
--- NOTE | 2018-02-11 04:38 | NUR ---
PRN CLONIDINE 0.1 MG 1 TABLET PO, PRN MOTRIN 600MG 1 TABLET PO ADMINISTRATION Patient c/o increased anxiety, and generalized body aches "8". PRN Clonidine 0.1 mg 1 PO administered for anxiety at 0438, PRN Motrin 500 mg PO administered for pain "8" at 0438, as ordered. Patient tolerated well. Safe and calm environment provided. All needs met. Safety measures in place: Call light within reach, bed locked in lowest position, padded bed rails up bilaterally. Will continue monitoring closely.
--- NOTE | 2018-02-11 05:38 | NUR ---
PRN RE-ASSESSMENT PRN Clonidine 0.1 mg 1 PO administered for anxiety at 0438, PRN Motrin 500 mg PO administered for pain "8/" at 0438 were effective. Patient is sleeping. Respirations are even and unlabored. RR: 14. Safe and calm environment provided. All needs met. Safety measures in place: Call light within reach, bed locked in lowest position, padded bed rails up bilaterally. Will continue monitoring closely.
[2018-02-11] MEDS: PANTOPRAZOLE SODIUM 40 MG TABLET.DR PO SCH (06:15)
--- NOTE | 2018-02-11 07:24 | NUR ---
END OF SHIFT NOTE: This is report on patient, a 27 year old male, presented for Benzodiazepines, Alcohol, and Methamphetamine withdrawal, completed 5 day Valium and 4 day Subutex. The patient tolerated well. Patient is alert and oriented x4, ambulatory with steady gait, soft clear speech. The patient appears worried, with easy distracted, anxious mood, and flat affect. Encourage to expressing his feelings, reassuring provided. During my shift patient presented with following withdrawal symptoms such as anxiety, agitation, depression, irritability, nervousness, restlessness, tremors, generalized body aches, myalgia, sweating, fatigue, and yawning. COWS=12, CIWA=10 at 2000, COWS=14, CIWA=14 at 0000. The most recent COWS=16, CIWA=15 at 0400. Withdrawal symptoms was closely monitored. PRN Seroquel 100 mg PO administered for insomnia at 2133, PRN Vistaril 50 mg PO administered for anxiety at 0012, and PRN Robaxin 750 mg PO administered for myalgia at 0013, PRN Clonidine 0.1 mg 1 PO administered for anxiety at 0438, PRN Motrin 500 mg PO administered for pain "8/10" at 0438, and were effective. The patient remains compliant with treatment plan, medications, and diet regime. Educated for non pharmacological method that can be used to help control pain. Encouraged to intake fluids as tolerated. Encouraged to attend group activities. Patient slept for 4 hours, intake 1,480 ml, output: voided x2. Safe and calm environment provided. All needs met. Safety measures: Call light within reach, bed locked in lowest position, padded bed rails up x2. Endorsed to day shift nurse.
--- NOTE | 2018-02-11 07:35 | NUR ---
START OF SHIFT Endorse rcvd from ongoing nurse, PRN Vistaril 50mg PO for anxiety, Clonidine 0.1mg PO for anxiety, Robaxin 750mg PO for myalgia, Seroquel 100mg PO for insomnia, client slept 4 hrs. Last CIWA 15 / COWS 16 @ 0400. Client completed 5 day Valium / 4 day Subutex taper. Client is in bed, lying on his L side, he sounds asleep, easy to arouse. RR 16, even, non-labored. Call light within reach. Will continue to monitor.
--- NOTE | 2018-02-11 08:58 | NUR ---
CIWA 7 / COWS 8 Client in in bed, he reports sweats, anxiety, irritability, stomach cramps, and fatigue. Client appears disheveled, anxious, and yawning occasionally. Client's room is unkept and a strong body odor lingers in his room. Client decline PRN medications to manage above symptoms. Encourage client to attend group therapy to learn skills to maintain sober. call light within reach.
--- NOTE | 2018-02-11 12:45 | NUR ---
CIWA 9 / COWS 8 & PRN Clonidine 0.1mg PO for agitation, Vistaril 50mg PO for anxiety, Motrin 600mg PO for generalized body aches /10, and Robaxin 750mg PO for myalgia administered. Call light within reach.
--- NOTE | 2018-02-11 13:37 | NUR ---
Therapist promoted client to attend group therapy.
--- NOTE | 2018-02-11 13:45 | NUR ---
Reassess PRN Clonidine 0.1mg, Vistaril 50mg Robaxin 750mg, and Motrin 600mg client reports slight relief from agitation, anxiety, myalgia, and decreased generalized body aches 2/10 but tolerable. Call light within reach.
[2018-02-11] MEDS ORDERED: IBUP-1955 PO (13:52)
[2018-02-11] MEDS ORDERED: METH-406 PO (13:52)
[2018-02-11] MEDS ORDERED: HYDR-3895 PO (13:52)
[2018-02-11] MEDS ORDERED: PRAZ1CAP2 PO (13:52)
[2018-02-11] MEDS ORDERED: PANT40TA2 PO (13:52)
[2018-02-11] MEDS ORDERED: CLON0.1T14 PO (13:52)
--- NOTE | 2018-02-11 16:00 | NUR ---
CIWA 5 / COWS 5 Client continues to present with anxiety, irritability, clammy skin, and fatigue. Call light within reach.
--- NOTE | 2018-02-11 19:02 | NUR ---
END OF SHIFT Endorse client to incoming nurse, client is in group therapy, a/o x 4. Client continues to present with anxiety, irritability, clammy skin, and fatigue. PRN Clonidine 0.1mg PO for agitation, Vistaril 50mg PO for anxiety, Motrin 600mg PO for generalized body aches, and Robaxin 750mg PO for myalgia. Last CIWA 5 /COWS 5 @ 1600. Client completed 5 day Valium / 4 day Subutex taper. Client is schedule for discharge to [facility] tomorrow am. Adequate PO fluid intake 1355mL, void x 3. Consumes 75% of meals. Call light within reach.
--- NOTE | 2018-02-11 19:30 | NUR ---
Start of shift Patient is a 27 years old male admitted on 02/05/2018 for ETOH, benzo and opiates withdrawal. Patient is on a 5 day Valium and 4 day Subutex. Patients last CIWA is 5 and COWS is 5. Per endorsement patient received PRN Motrin, Vistaril, Robaxin and Clonidine. Medication was noted to be effective. Patient is set for discharged tomorrow 02/12/2018. Patient is on FALL and Seizure precautions. Upon rounds patient was noted in bed watching TV. Patient presents with mild sweats, anxiety and agitation. Reviewed 2100 medications with patient, verbalized understanding and asked for PRN Seroquel, Robaxin and Vistaril for 2100 medications. He stated he has been unable to sleep and PRNs have been helping. Respirations are even and unlabored. Safety measure in place, bed locked in low position, side rails up x2, and call light within reach. Will continue to monitor.
[2018-02-11] MEDS: QUETIAPINE FUMARATE 100 MG TABLET PO PRN (20:58)
[2018-02-11] MEDS: PRAZOSIN HCL 1 MG CAPSULE PO SCH (20:59)
--- NOTE | 2018-02-11 21:00 | NUR ---
PRN Vistaril 50 mg, Clonidine 0.1 mg, Motrin 600, Robaxin 750 mg, Seroquel 100 mg Patient presenting with stomach cramps, body aches, anxiety, agitation, tremors, chill and sweats. Patient also verbalized inability of falling asleep. CIWA is 15 and COWS is 15. Charge nurse and MD made aware with new orders to discontinue discharge for further monitoring. New order obtained for Valium 5mg x1 tonight @ 2230 and Valium 5mg for 02/12/2018 at 0900. PRN Vistril 50 mg, Clonidine 0.1 mg,
--- NOTE | 2018-02-11 21:30 | NUR ---
Valium taper extended Patient with CIWA=15 and is increasingly anxious, with dark undereye circles, lacrimation and goosebumps. Dr. Singh notified and he ordered Valium taper extended until tomorrow at 0900. Discharge changed to 02/13/2018. project planner aware.
--- NOTE | 2018-02-11 22:00 | NUR ---
PRN Vistaril 50 mg, Clonidine 0.1 mg, Motrin 600, Robaxin 750 mg, Seroquel 100 mg Reassessment Patient tolerated medications well. Patient is noted in bed watching television. Patient stated he feels better but he feels constipated. Respirations are even and unlabored. Safety measures in place. Will continue to monitor.
--- NOTE | 2018-02-11 22:00 | NUR ---
COWS 13 and CIWA 11 Assessments Patient was presenting with withdrawal symptoms: anxiety, stomach cramps, agitation, tremors, restlessness, sweats and chills. Patient COWS is 13 and CIWA is 11. Respirations are even and unlabored. Safety measures in place. Will continue to monitor.
[2018-02-11] MEDS ORDERED: DIAZEPAM 5 MG TABLET PO ONE (22:30)
--- NOTE | 2018-02-11 22:39 | NUR ---
PRN Milk of Magnesium Patient is verbalizing increased feelings of constipation. PRN milk of magnesium administered. Patient tolerated well. Safety measure in place. Will continue to monitor.
[2018-02-12] VITALS (7 sets, daily range): BP systolic 91–124; BP diastolic 56–73
--- NOTE | 2018-02-12 | NUR ---
COWS and CIWA ASSESSMENT IS DEFERRED Patient noted to be in bed resting with eyes closed. Respirations are even and unlabored. Per protocol COWS and CIWA is to be assessed while awake. Safety measures in place, bed lock in low position, side rails up x2, call light within reach. Will continue to monitor.
[2018-02-12] MEDS: PANTOPRAZOLE SODIUM 40 MG TABLET.DR PO SCH (06:15)
--- NOTE | 2018-02-12 07:17 | NUR ---
End of shift Patient is a 27 years old male admitted on 02/05/2018 for ETOH, benzo and opiates withdrawal. Patient is on a 5 day Valium and 4 day Subutex. Patients last CIWA is 11 and COWS is 13. Patient received PRN Motrin, Vistaril, Robaxin, milk of magnesium and Clonidine. CIWA is 15 and COWS is 15 at 2000. Charge nurse and MD made aware with new orders to discontinue discharge for further monitoring. New order obtained for Valium 5mg x1 tonight @ 2230 and Valium 5mg for 02/12/2018 at 0900. Medication was noted to be effective. Patient slept for 6 hours. Patient total intake was 1,656 ml and voided 2 and had no bowel movements. Patient is on FALL and Seizure precautions. Respirations are even and unlabored. Safety measures in place, bed locked in low position, side rails up x2, and call light within reach. Will endorse to day shift.
--- NOTE | 2018-02-12 07:40 | NUR ---
START OF SHIFT Endorse rcvd from ongoing nurse, PRN Vistaril 50mg PO for anxiety, Clonidine 0.1mg PO for anxiety, agitation, Motrin 600mg Po for body aches, Robaxin 750mg Po for myalgia, Milk of Magnesia 30mL PO for constipation, Seroquel 100mg Po for insomnia, client has been sleeping for 6 hrs. Client is in bed, RR 16, even, non-labored. Last CIWA 11 / COWS 13 @ 2200. Call light within reach.
[2018-02-12] MEDS ORDERED: DIAZEPAM 5 MG TABLET PO ONE (09:00)
[2018-02-12] MEDS: MIRALAX 17 GM POWD.PACK PO PRN (09:11)
[2018-02-12] MEDS: IBUPROFEN 600 MG TABLET PO PRN ×2 (09:11→20:17)
[2018-02-12] MEDS: METHOCARBAMOL 750 MG TABLET PO PRN (09:11)
--- NOTE | 2018-02-12 09:11 | NUR ---
CIWA 10 / COWS 11 & PRN Motrin 600mg PO for generalized body aches, Robaxin 750mg PO for myalgia, Miralax 17gm PO for constipation administered. Client denies any nausea, vomiting, diarrhea. Client reports fatigue, anxiety, restlessness, tremors, sweating, depression, yawning, myalgia, body aches, irritability and constipation. Encourage client to increase PO fluid intake to facilitate detox and constipation. Call light within reach.
--- NOTE | 2018-02-12 09:38 | NUR ---
Endorse client to RN for continuity of care, discuss all relevant information. RN to reassess PRN medications.
--- NOTE | 2018-02-12 10:11 | NUR ---
PRN Re-Assessment Pt denies any BM at this time. Endorses relief from pain and myalgia. Will continue to monitor, support and encourage according to plan of care. Addendum: 02/12/18 at 1654 by ESPINOZA VERDUZCO RN Pt ednrses having had a BM today. Will continue to monitor, support and encourage according to plan of care.
--- NOTE | 2018-02-12 13:26 | NUR ---
CIWA 7/COWS 10 Pt is anxious and restless with fine tremors and complaints of nausea and chills, Will continue to monitor, support and encourage according to plan of care.
--- NOTE | 2018-02-12 16:30 | NUR ---
CIWA 7/COWS 7 Pt is diaphoretic, anxious, tremulous and has fine tremors. Pt with nausea and stuffy nose. Will continue to monitor, support and encourage according to plan of care.
--- NOTE | 2018-02-12 19:03 | NUR ---
End of Shift Student Ministries Director provided report on 27 year old male admitted to [facility] on 02/05/18 for medical management of Benzodiazepine and Opiate withdrawals. Pt endorses NKA, full code and regular diet. Pt denies any chronic PMH, endorses PPH of anxiety and insomnia. Pt has completed a Valium and Subutex taper in anticipation of discharge. Last CIWA 6 and COWS 7. Pt is scheduled to discharge tomorrow morning. Pt was administered PRN Miralax(constipation), Motrin(pain) and Robaxin(myalgia) on the this shift. Pt is A/O x4 and makes needs known. Linear thought process and clear speech pattern. Calm and cooperative. Isolative and withdrawn to room, guarded with staff. Bed in low position with wheels locked and side rails up x2.
--- NOTE | 2018-02-12 19:16 | NUR ---
Start of shift note Pt is a 27 yo male, A+Ox4, presenting to [facility] for medically supervised Benzo/Opiate withdrawal. Pt has also been using Methamphetamines. Pt noted with generalized body aches, anxiety, agitation, and restlessness. Pt has HX of insomnia, and anxiety which will be monitored during shift. Pt has completed 5 day Valium and 4 day Subutex tapers, tolerated well, and is due for discharge tomorrow. Respirations even and unlabored. Will continue to monitor.
--- NOTE | 2018-02-12 20:11 | NUR ---
COWS and CIWA Assessment COWS: 7 and CIWA: 5. Pt noted with pulse 95, sweat on brow, restlessness, sever diffuse discomfort, stomach cramps, anxiety, and agitation. Respirations even and unlabored. Will continue to monitor.
[2018-02-12] MEDS: PRAZOSIN HCL 1 MG CAPSULE PO SCH (20:17)
--- NOTE | 2018-02-12 20:17 | NUR ---
PRN Motrin Pt c/o generalized body aches 01/08 and requested for PRN Motrin. Medication given and tolerated well. Will reassess within 1 HR. Will continue to monitor.
[2018-02-12] MEDS: HYDROXYZINE PAMOATE 25 MG CAPSULE PO PRN (20:59)
[2018-02-12] MEDS: QUETIAPINE FUMARATE 100 MG TABLET PO PRN (20:59)
--- NOTE | 2018-02-12 20:59 | NUR ---
PRN Seroquel and Vistaril Pt c/o anxiety and inability to sleep and requested for PRN Seroquel and Vistaril. Medications given and tolerated well. Will reassess within 1 HR. Will continue to monitor.
--- NOTE | 2018-02-12 21:15 | NUR ---
PRN Motrin Reassessment Medication effective. Pt expresses reduction of body aches to 5/10. No s/s of ASE noted at this time. Respirations even and unlabored. Will continue to monitor.
--- NOTE | 2018-02-12 21:50 | NUR ---
PRN Seroquel and Vistaril Reassessment Pt expresses reduction of anxiety. Pt is resting well in bed. No s/s of ASE noted at this time. Respirations even and unlabored. Will continue to monitor.
--- NOTE | 2018-02-13 00:22 | NUR ---
V/S refused and COWS and CIWA assessment deferred for sleep. Respirations even and unlabored. Will continue to monitor.
--- NOTE | 2018-02-13 04:52 | NUR ---
V/S refused and COWS and CIWA assessment deferred for sleep. Respirations even and unlabored. Will continue to monitor.
[2018-02-13] MEDS: PANTOPRAZOLE SODIUM 40 MG TABLET.DR PO SCH (06:53)
--- NOTE | 2018-02-13 06:57 | NUR ---
End of shift note Pt was continuously noted with restlessness, agitation, anxiety, and generalized body aches. Pt remained in room for majority of shift except to go smoke on smoking patio and to get food from kitchen. Pt remained compliant and cooperative with all aspects of treatment. Pt was given PRN Motrin @2016 and PRN Seroquel and Vistaril @2058. Pt has completed 5 day Valium and 4 day Subutex tapers, tolerated well, and is due for discharge today. Pt slept for a total of 9 HRS. Last COWS: 7 and Last CIWA: 5 @2010. Respirations even and unlabored. Will endorse to day shift nurse.
--- NOTE | 2018-02-13 08:00 | NUR ---
start of shift note: received pt from overnight houseperson nurse, pt is in stable condition pt is set to discharge today, pt with minimal body aches will administer robaxin for body aches of 8/10. will assist pt in discharging and will continue to monitor for any moderate s/s of withdrawal.
[2018-02-13] MEDS: METHOCARBAMOL 750 MG TABLET PO PRN (09:01)
--- NOTE | 2018-02-13 09:35 | NUR ---
discharge note: pt verbalized robaxin is effective pain scale 2/10. pt will be discharged to [facility] via private transportation. pt teaching was administered and pt verbalized understanding. all personal belongings were given to patient upon discharge
== END 2018-02-13 09:35 | disposition other institution (70) | DRG 895 ==
LOC: SRC 19:36
PROVIDERS: ADMIT Family Medicine Addiction Medicine; ATTEND Family Medicine Addiction Medicine
PROC: HZ2ZZZZ Detoxification Services for Substance Abuse Treatment (ICD-10-PCS; principal; 2018-02-05)
PROC: HZ31ZZZ Individual Counseling for Substance Abuse Treatment, Behavioral (ICD-10-PCS; 2018-02-08)
DX: F11.23 Opioid dependence with withdrawal (principal); F15.23 Other stimulant dependence with withdrawal; Z59.0 Homelessness; F17.210 Nicotine dependence, cigarettes, uncomplicated; F13.230 Sedative, hypnotic or anxiolytic dependence with withdrawal, uncomplicated; F41.0 Panic disorder [episodic paroxysmal anxiety]; G47.00 Insomnia, unspecified; K59.00 Constipation, unspecified
CPT/HCPCS: 36415; 80307; 80324; 80361; 83735; 85025; 86592; 86705; 86803; 87340; 87806; A4663; G0480

== ENCOUNTER 2018-05-25 00:39 | Inpatient (IN) | payer OTHER ==
[~2018-05-25] VITALS: Ht 188 cm; Wt 74.8 kg
[~2018-05-25 00:39] MED LIST: CLON0.1T14 PO; HYDR-3895 PO; IBUP-1955 PO; METH-406 PO; PANT40TA2 PO; PRAZ1CAP2 PO; QUET100T PO
[2018-05-25] MEDS ORDERED: SERT50TA PO (01:07)
[2018-05-25 01:10] VITALS: BP 143/67
[2018-05-25] MEDS ORDERED: LOPERAMIDE HCL 2 MG CAPSULE PO PRN ×2 (01:15)
[2018-05-25] MEDS ORDERED: SRC OPIOID WITHDRAWAL ADMITTING PROTOCOL XX PRN (01:15)
[2018-05-25] MEDS ORDERED: BUPRENORPHINE HCL 2 MG TAB.SUBL SL PRN (01:15)
[2018-05-25] MEDS ORDERED: ACETAMINOPHEN 325 MG TABLET PO PRN (01:15)
[2018-05-25] MEDS ORDERED: HYDROXYZINE PAMOATE 25 MG CAPSULE PO PRN (01:15)
[2018-05-25] MEDS ORDERED: CLONIDINE HCL 0.1 MG TABLET PO PRN (01:15)
[2018-05-25] MEDS ORDERED: MAGNESIUM HYDROXIDE 30 ML LIQUID UDC PO PRN (01:15)
[2018-05-25] MEDS ORDERED: MIRALAX 17 GM POWD.PACK PO PRN (01:15)
[2018-05-25] MEDS ORDERED: ONDANSETRON ODT 4 MG TAB.RAPDIS SL PRN (01:15)
[2018-05-25] MEDS ORDERED: MAG HYDROX/AL HYDROX/SIMETH 30 ML LIQUID UDC PO PRN (01:15)
[2018-05-25] MEDS ORDERED: ONDANSETRON 4 MG/2 ML VIAL IM PRN (01:15)
[2018-05-25] MEDS ORDERED: diphenhydrAMINE 50 MG CAPSULE PO PRN (01:15)
[2018-05-25 01:29] LABS: BASOPHILS # (AUTO) 0.1 K/uL (0.0-8.0); BASOPHILS % (AUTO) 0.7 % (0.0-2.0); EOSINOPHILS # (AUTO) 0.4 K/uL (0.0-0.7); EOSINOPHILS % (AUTO) 4.2 % (0.0-7.0); HEMATOCRIT 42.4 % (36.7-47.1); HEMOGLOBIN 14.9 g/dL (12.5-16.3); LYMPHOCYTES # (AUTO) 2.8 K/uL (20.0-40.0); LYMPHOCYTES % (AUTO) 26.4 % (20.5-51.5); MEAN CORPUSCULAR HEMOGLOBIN 30.9 uug (23.8-33.4); MEAN CORPUSCULAR HGB CONC 35 g/dL (32.5-36.3); MEAN CORPUSCULAR VOLUME 87.9 fL (73.0-96.2); MONOCYTES % (AUTO) 9.3 % (0.0-11.0); NEUTROPHILS # (AUTO) 6.3 K/uL (1.8-8.9); NEUTROPHILS % (AUTO) 59.4 % (38.5-71.5); PLATELET COUNT (AUTO) 372 K/uL (152-348); RED BLOOD CELL COUNT(AUTO) 4.82 MIL/uL (4.06-5.63); WHITE BLOOD COUNT (AUTO) 10.5 K/uL (3.6-10.2)
[2018-05-25 01:58] LABS: *AMPHETAMINE, URINE NEGATIVE (NEGATIVE); *BARBITURATE, URINE NEGATIVE (NEGATIVE); *CANNABINOID, URINE NEGATIVE (NEGATIVE); *COCCAINE, URINE NEGATIVE (NEGATIVE); *OPIATE, URINE POSITIVE (NEGATIVE); *PHENCYCLIDINE SCREEN,URINE NEGATIVE (NEGATIVE)
[2018-05-25 01:59] LABS: ALANINE AMINOTRANSFERASE 25 U/L (16-63); ALKALINE PHOSPHATASE 93 U/L (50-136); ASPARTATE AMINOTRANSFERASE 20 U/L (15-37); BILIRUBIN,TOTAL 0.4 mg/dL (0.2-1.0); CARBON DIOXIDE 29 mmol/L (21-32); CHLORIDE 102 mmol/L (98-107); CREATININE 0.9 mg/dL (0.6-1.3); GLUCOSE 96 mg/dL (74-106); MAGNESIUM 2.2 mg/dL (1.8-2.4); POTASSIUM 3.7 mmol/L (3.5-5.1); TOTAL PROTEIN, SERUM 7.5 g/dL (6.4-8.2); UREA NITROGEN, BLOOD 11 mg/dL (7-18)
[2018-05-25 02:05] LABS: ETHANOL < 3 MG/DL (0-0)
[2018-05-25] MEDS ORDERED: QUETIAPINE FUMARATE 100 MG TABLET PO ONE (02:30)
[2018-05-25] MEDS ORDERED: MELA3TAB PO (03:47)
[2018-05-25] MEDS ORDERED: CRAN500T2 PO (03:47)
[2018-05-25] MEDS ORDERED: MULT-1201 PO (03:47)
[2018-05-25] MEDS ORDERED: TIZA4TAB4 PO (03:47)
[2018-05-25 04:22] VITALS: BP 128/63
[2018-05-25 09:00] VITALS: BP 108/79
[2018-05-25] MEDS ORDERED: 4 DAY TAPER VALIUM-SERENITY PROTOCOL PO PRN (09:45)
[2018-05-25] MEDS: DIAZEPAM 5 MG TABLET PO SCH ×4 (10:03→20:14)
[2018-05-25] MEDS: IBUPROFEN 600 MG TABLET PO PRN ×2 (10:05→20:14)
[2018-05-25 14:17] VITALS: BP 126/77
[2018-05-25 17:25] VITALS: BP 118/62
[2018-05-25 20:00] VITALS: BP 126/64
[2018-05-25] MEDS: QUETIAPINE FUMARATE 100 MG TABLET PO PRN (20:14)
[2018-05-26] VITALS: BP 123/67
[2018-05-26 04:00] VITALS: BP 125/71
[2018-05-26 08:22] VITALS: BP 100/53
[2018-05-26] MEDS ORDERED: TUBERCULIN,PURIF.PROT.DERIV. 5 TU/0.1 ML TEST ID ONE (09:00)
[2018-05-26] MEDS: SERTRALINE HCL 50 MG TABLET PO SCH (09:17)
[2018-05-26] MEDS: DIAZEPAM 5 MG TABLET PO SCH ×3 (09:17→20:05)
[2018-05-26] MEDS: MULTIVITAMINS,THERAPEUTIC TABLET PO SCH (09:18)
[2018-05-26] MEDS: IBUPROFEN 600 MG TABLET PO PRN ×2 (09:25→19:03)
[2018-05-26] MEDS: METHOCARBAMOL 750 MG TABLET PO PRN (09:25)
[2018-05-26 12:00] VITALS: BP 117/67
[2018-05-26] MEDS ORDERED: BENZOCAINE ORAL CARE 12 ML BOTTLE MM PRN (12:15)
[2018-05-26] MEDS ORDERED: MELATONIN 3 MG TABLET PO PRN (15:30)
[2018-05-26] MEDS ORDERED: IBUPROFEN 600 MG TABLET PO PRN (15:30)
[2018-05-26] MEDS ORDERED: CLONIDINE HCL 0.1 MG TABLET PO PRN (15:30)
[2018-05-26] MEDS ORDERED: METHOCARBAMOL 750 MG TABLET PO PRN (15:30)
[2018-05-26] MEDS ORDERED: HYDROXYZINE PAMOATE 25 MG CAPSULE PO PRN (15:30)
[2018-05-26 16:30] VITALS: BP 126/71
[2018-05-26] MEDS: PRAZOSIN HCL 1 MG CAPSULE PO SCH (20:05)
[2018-05-26 20:10] VITALS: BP 128/78
[2018-05-26] MEDS: QUETIAPINE FUMARATE 100 MG TABLET PO PRN (21:14)
[2018-05-27 03:06] LABS: HEPATITIS B SURFACE AG Negative (Negative)
[2018-05-27 08:00] VITALS: BP 90/75
[2018-05-27] MEDS: PANTOPRAZOLE SODIUM 40 MG TABLET.DR PO SCH (08:05)
[2018-05-27] MEDS: IBUPROFEN 600 MG TABLET PO PRN (08:36)
[2018-05-27] MEDS: DIAZEPAM 5 MG TABLET PO SCH ×2 (08:36→20:34)
[2018-05-27] MEDS: SERTRALINE HCL 50 MG TABLET PO SCH (08:36)
[2018-05-27] MEDS: MULTIVITAMINS,THERAPEUTIC TABLET PO SCH (08:36)
[2018-05-27 12:00] VITALS: BP 142/76
[2018-05-27 16:00] VITALS: BP 114/72
[2018-05-27 20:00] VITALS: BP 127/71
[2018-05-27] MEDS: QUETIAPINE FUMARATE 100 MG TABLET PO PRN (20:34)
[2018-05-27] MEDS: METHOCARBAMOL 750 MG TABLET PO PRN (20:34)
[2018-05-27] MEDS: PRAZOSIN HCL 1 MG CAPSULE PO SCH (20:34)
[2018-05-28] MEDS: PANTOPRAZOLE SODIUM 40 MG TABLET.DR PO SCH (06:47)
[2018-05-28 08:55] VITALS: BP 122/75
[2018-05-28] MEDS ORDERED: DIAZEPAM 5 MG TABLET PO SCH (09:00)
[2018-05-28] MEDS: SERTRALINE HCL 50 MG TABLET PO SCH (09:26)
[2018-05-28] MEDS: MULTIVITAMINS,THERAPEUTIC TABLET PO SCH (09:26)
[2018-05-28 12:01] VITALS: BP 130/84
[2018-05-28] MEDS ORDERED: PRAZ1CAP2 PO (13:54)
[2018-05-28] MEDS ORDERED: QUET100T PO (13:54)
[2018-05-28] MEDS ORDERED: IBUP-1955 PO (13:54)
[2018-05-28] MEDS ORDERED: SERT50TA PO (13:54)
[2018-05-28 16:00] VITALS: BP 124/81
[2018-05-28 20:00] VITALS: BP 137/80
[2018-05-28] MEDS: PRAZOSIN HCL 1 MG CAPSULE PO SCH (22:10)
[2018-05-28] MEDS: QUETIAPINE FUMARATE 100 MG TABLET PO PRN (22:10)
[2018-05-28] MEDS: METHOCARBAMOL 750 MG TABLET PO PRN (22:10)
[2018-05-29] MEDS: PANTOPRAZOLE SODIUM 40 MG TABLET.DR PO SCH (07:17)
[2018-05-29 08:00] VITALS: BP 125/70
[2018-05-29] MEDS: SERTRALINE HCL 50 MG TABLET PO SCH (08:48)
[2018-05-29] MEDS: MULTIVITAMINS,THERAPEUTIC TABLET PO SCH (08:48)
== END 2018-05-29 09:31 | disposition other institution (70) | DRG 895 ==
LOC: SRC 00:39
PROVIDERS: ADMIT Family Medicine Addiction Medicine; ATTEND Family Medicine Addiction Medicine
PROC: HZ2ZZZZ Detoxification Services for Substance Abuse Treatment (ICD-10-PCS; principal; 2018-05-25)
PROC: HZ41ZZZ Group Counseling for Substance Abuse Treatment, Behavioral (ICD-10-PCS; 2018-05-27)
PROC: HZ31ZZZ Individual Counseling for Substance Abuse Treatment, Behavioral (ICD-10-PCS; 2018-05-28)
DX: F11.23 Opioid dependence with withdrawal (principal); F33.2 Major depressive disorder, recurrent severe without psychotic features; F17.210 Nicotine dependence, cigarettes, uncomplicated; F41.1 Generalized anxiety disorder; Z91.89 Other specified personal risk factors, not elsewhere classified
CPT/HCPCS: 36415; 70030-TC; 80307; 80361; 83735; 84443; 85025; 86592; 86705; 86803; 87340; 87806; A9150; G0480